=== PATIENT | female | born 1995 | race Caucasian/White ===

== ENCOUNTER 2022-03-19 10:23 | Outpatient (CLI) | payer SELFPAY ==
[2022-03-19 11:52] LABS: BUN/CREATININE RATIO 11 (0-10)
== END 2022-03-19 12:22 | disposition home or self-care (01) ==
LOC: GENOP 10:23
PROVIDERS: Obstetrics & Gynecology
DX: O36.8120 Decreased fetal movements, second trimester, not applicable or unspecified (principal); Z3A.25 25 weeks gestation of pregnancy; O99.891 Other specified diseases and conditions complicating pregnancy; L29.9 Pruritus, unspecified
CPT/HCPCS: 59025; 80053; 82239

== ENCOUNTER 2022-03-31 16:59 | Outpatient (CLI) | payer SELFPAY | END 2022-03-31 19:45 | disposition home or self-care (01) | LOC: GENOP 16:59 | DX: O47.02 False labor before 37 completed weeks of gestation, second trimester (principal); Z3A.26 26 weeks gestation of pregnancy | CPT/HCPCS: 81001; 84112; G0463 ==

== ENCOUNTER 2022-05-20 23:08 | Outpatient (CLI) | payer OTHER | END 2022-05-21 00:58 | disposition home or self-care (01) | LOC: GENOP 23:08 | DX: O36.8130 Decreased fetal movements, third trimester, not applicable or unspecified (principal); Z3A.33 33 weeks gestation of pregnancy | CPT/HCPCS: G0463 ==